=== PATIENT | female | born 1990 ===

== ENCOUNTER 2022-08-25 06:16 | Day surgery (SDC) | payer OTHER ==
[~2022-08-25 06:16] MED LIST: LEVOTHYROXINE25 MCG PO; PRENAT PO; SYNTHROID112 MCG PO
== END 2022-08-25 14:05 | disposition home or self-care (01) ==
LOC: CIR.AMB 06:16
PROVIDERS: ATTEND Obstetrics & Gynecology Maternal & Fetal Medicine
DX: O34.31 Maternal care for cervical incompetence, first trimester (principal); Z3A.13 13 weeks gestation of pregnancy; N84.3 Polyp of vulva; G47.33 Obstructive sleep apnea (adult) (pediatric); E03.9 Hypothyroidism, unspecified; Z20.822 Contact with and (suspected) exposure to COVID-19

== ENCOUNTER 2022-10-25 08:08 | Inpatient (IN) | payer OTHER ==
[~2022-10-25] VITALS: Ht 167.6 cm; Wt 137.0 kg
[2022-10-26] MEDS ORDERED: PRENATAL + DHA1 EAC1 (13:06)
== END 2022-10-29 08:35 | disposition home or self-care (01) | DRG 768 ==
LOC: OBS/DEL 08:08 → LDR 12:53 → OBS/DEL 12:53 → LDR 10-26 08:10 → OB/GYN 10-26 10:01 → LDR 10-26 10:01 → OB/GYN 10-29 08:35
PROVIDERS: ADMIT Obstetrics & Gynecology Maternal & Fetal Medicine; ATTEND Obstetrics & Gynecology Maternal & Fetal Medicine
PROC: 4A1HXCZ Monitoring of Products of Conception, Cardiac Rate, External Approach (ICD-10-PCS; 2022-10-26)
PROC: 10E0XZZ Delivery of Products of Conception, External Approach (ICD-10-PCS; principal; 2022-10-28)
PROC: 0UCC7ZZ Extirpation of Matter from Cervix, Via Natural or Artificial Opening (ICD-10-PCS; 2022-10-28)
DX: O60.12X0 Preterm labor second trimester with preterm delivery second trimester, not applicable or unspecified (principal); O36.4XX0 Maternal care for intrauterine death, not applicable or unspecified; O32.1XX0 Maternal care for breech presentation, not applicable or unspecified; Z37.1 Single stillbirth; Z3A.21 21 weeks gestation of pregnancy; Z20.822 Contact with and (suspected) exposure to COVID-19

== ENCOUNTER 2025-10-30 09:45 | Inpatient (IN) | payer OTHER ==
[~2025-10-30] VITALS: Ht 182.9 cm; Wt 109.3 kg
[~2025-10-30 09:45] MED LIST changes: +PRENATAL + DHA1 EAC1
[2025-10-30] MEDS ORDERED: ZESTRIL40 M1 PO (11:16)
[2025-11-06] MEDS ORDERED: CEFOXITIN SODIUM 2,000 MG VIAL IV ONE (06:30)
[2025-11-06] MEDS ORDERED: SUGAMMADEX SODIUM 200 MG/2 ML VIAL IV ONE (08:20)
[2025-11-06] MEDS ORDERED: MORPHINE SULFATE 4 MG/ML VIAL IV SCH (12:00)
[2025-11-06] MEDS ORDERED: ONDANSETRON HCL 2 MG/ML VIAL IV PRN (12:00)
[2025-11-06] MEDS ORDERED: PROMETHAZINE HCL 25 MG/ML AMPUL IM SCH (12:00)
[2025-11-06] MEDS ORDERED: RINGERS SOLUTION,LACTATED 1,000 ML IV SCH (12:00)
[2025-11-06 13:48] LABS: BASO % 0.1 % (0.1-1.2); EOS # 0.01 (0.04-0.54); EOS % 0.0 % (0.7-7.0); LYMPH # 0.82 (1.18-3.74); LYMPH % 3.5 % (19.3-53.1); MEAN PLATELET VOLUME 10.60 fl (9.4-12.4); MONO # 0.62 (0.24-0.82); MONO % 2.6 % (4.7-12.5); NEUT # 21.84 (1.56-6.13); NEUT % 93.2 % (34.0-71.1); RED CELL DISTRIBUTION WIDTH 13.6 % (11.6-14.4)
[2025-11-06 14:35] VITALS: BP 132/75
[2025-11-06] MEDS ORDERED: CEFOXITIN SODIUM 2,000 MG VIAL IV SCH (17:00)
[2025-11-06 17:57] VITALS: BP 137/79
[2025-11-07 02:07] VITALS: BP 115/70
[2025-11-07] MEDS ORDERED: LEVOTHYROXINE SODIUM 112 MCG TABLET PO SCH (06:00)
[2025-11-07 07:03] LABS: BASO % 0.1 % (0.1-1.2); EOS # 0.02 (0.04-0.54); EOS % 0.2 % (0.7-7.0); LYMPH # 2.29 (1.18-3.74); LYMPH % 21.3 % (19.3-53.1); MEAN PLATELET VOLUME 11.00 fl (9.4-12.4); MONO # 1.01 (0.24-0.82); MONO % 9.4 % (4.7-12.5); NEUT # 7.38 (1.56-6.13); NEUT % 68.7 % (34.0-71.1); RED CELL DISTRIBUTION WIDTH 13.7 % (11.6-14.4)
[2025-11-07 08:56] VITALS: BP 123/75
[2025-11-07] MEDS ORDERED: ACETAMINOPHEN WITH CODEINE 1 UDTAB TABLET PO SCH (09:00)
[2025-11-07] MEDS ORDERED: LISINOPRIL 40 MG TABLET PO SCH (09:00)
[2025-11-07 13:37] VITALS: BP 121/78
[2025-11-07 17:01] VITALS: BP 109/68
[2025-11-08 01:19] VITALS: BP 140/80
[2025-11-08] MEDS ORDERED: ACETAMINOPHEN-1 EAC2 PO (07:43)
[2025-11-08] MEDS ORDERED: KETO10TA2 PO (07:43)
[2025-11-08 09:00] VITALS: BP 108/73
== END 2025-11-08 11:15 | disposition home or self-care (01) | DRG 747 ==
LOC: O/R 11-06 05:30 → OB/GYN 11-06 05:30 → SURH 11-06 07:00 → O/R 11-06 08:57 → SURH 11-06 09:45 → OB/GYN 11-06 11:16
PROVIDERS: ADMIT Obstetrics & Gynecology Maternal & Fetal Medicine; ATTEND Obstetrics & Gynecology Maternal & Fetal Medicine
PROC: 0UVC7ZZ Restriction of Cervix, Via Natural or Artificial Opening (ICD-10-PCS; principal; 2025-11-06 07:00)
DX: N88.3 Incompetence of cervix uteri (principal)